=== PATIENT | male | born 1980 | race Caucasian/White ===

== ENCOUNTER 2016-09-24 04:49 | Emergency (ER) | payer OTHER, SELFPAY ==
[2016-09-24 06:11] LABS: MEAN CORPUSCULAR HEMOGLOBIN 32.7 pg (27.0-33.0); MEAN CORPUSCULAR HGB CONC 34.9 g/dl (32.0-36.5); MEAN CORPUSCULAR VOLUME 93.9 fl (80.0-96.0); WHITE BLOOD COUNT 7.6 K/mm3 (4.0-10.0)
[2016-09-24 06:30] LABS: AMPHETAMINES LEVEL URINE NEGATIVE (NEGATIVE); BENZODIAZEPINES URINE NEGATIVE (NEGATIVE); COCAINE METABOLITE URINE NEGATIVE (NEGATIVE); CONTROL LINE INT CTR LINE PRESENT; METHADONE URINE NEGATIVE (NEGATIVE); OPIATES URINE NEGATIVE (NEGATIVE); TRICYCLIC ANTIDEPRESS URINE NEGATIVE (NEGATIVE)
[2016-09-24 06:37] LABS: ALBUMIN 4.2 GM/DL (3.2-5.2); ALBUMIN/GLOBULIN RATIO 1.31 (1.00-1.93); ALKALINE PHOSPHATASE 69 U/L (45-117); ALT/SGPT 33 U/L (12-78); ANION GAP 11 MEQ/L (8-16); AST/SGOT 22 U/L (15-37); BILIRUBIN,DIRECT 0.1 MG/DL (0.0-0.2); BILIRUBIN,TOTAL 0.8 MG/DL (0.2-1.0); BLOOD UREA NITROGEN 11 MG/DL (7-18); CALCIUM LEVEL 8.9 MG/DL (8.5-10.1); CARBON DIOXIDE LEVEL 23 MEQ/L (21-32); CHLORIDE LEVEL 108 MEQ/L (98-107); CREATININE FOR GFR 1.03 MG/DL (0.70-1.30); GLOMERULAR FILTRATION RATE > 60.0 (>60); GLUCOSE, FASTING 111 MG/DL (70-105); POTASSIUM SERUM 3.8 MEQ/L (3.5-5.1); SODIUM LEVEL 142 MEQ/L (136-145); TOTAL PROTEIN 7.4 GM/DL (6.4-8.2)
--- NOTE | 2016-09-24 09:35 | EDDOCDS ---
Nurse's Notes [facility] Name: Elias Hart Age: 35 yrs Sex: Male : 1980 Arrival Date: 09/24/2016 Time: 04:49 Bed [facility] [[email or web address]] Private MD: Diagnosis: Acute stress reaction Presentation: 09/24 04:57 Presenting complaint: Pt brought in via state troopers, report was drinking tonight, sls1 has had ongoing depression for few months, states " everything came to a head today" told to shoot him, called 911, pt admits to statement, denies HI. Pt tearful cooperative. Mental Health Triage Level: Level 2: The patient displays active suicidal ideations. Adult Sepsis Screening: The patient does not have new or worsening altered mentation. Patient's respiratory rate is less than 22. Systolic blood pressure is greater than 100. Patient has a qSOFA score of 0- Negative Sepsis Screen. Suicide/Homicide risk assessment- The patient admits to and/or has been reported to be having suicidal ideations. The patient reports that he/she has not been admitted to an inpatient mental health facility in the last 30 days. The patient reports that he/she does not have a recent or current history of substance abuse. The patient reports that he/she has no prior history of suicide attempt and/or organized plan. The patient reports that he/she has not experienced a significant life altering event in the last 30 days. The patient reports that he/she has adequate social support. Status: Patient is not a job service consultant or dependent. Transition of care: patient was not received from another setting of care. 04:57 Acuity: SULAIMAN Level 3 sls1 04:57 Method Of Arrival: Police Car sls1 Triage Assessment: 04:58 General: Appears in no apparent distress, Behavior is appropriate for age, cooperative. sls1 Pain: Denies pain. Pt Declines HIV testing. The patient is triaged at the bedside. See Assessment in Nurses Notes section of ED record. Neurological: Level of Consciousness is awake, alert, Oriented to person, place, time. Respiratory: Airway is patent Respiratory effort is even, unlabored, Respiratory pattern is regular, symmetrical. Derm: No deficits noted. Historical: - Allergies: Ampicillin; - Home Meds: 1. none - PMHx: none; - PSHx: none; - Social history: Smoking status: Patient uses tobacco products, heavy tobacco smoker. Patient uses alcohol admits to "couple of beers" a day. No barriers to communication noted, The patient speaks fluent Greenlandic, Speaks appropriately for age. - Family history: Not pertinent. - : The pt / caregiver states he / she is not on anticoagulants. Home medication list is obtained from the patient. - Exposure Risk Screening:: None identified. Screenin:59 Screening information is obtained from the patient. Fall risk: No risks identified. sls1 Assistance ADL's: requires no assistance with activities of daily living. Abuse/DV Screen: The patient / caregiver reports he/she is: not in a situation that causes fear, pain or injury. Nutritional screening: No deficits noted. Advance Directives: Further advance directive information is declined. home support is adequate. Assessment: 04:59 General: Appears in no apparent distress, See triage assessment. sls1 05:07 General: Appears in no apparent distress, comfortable, Behavior is cooperative, pt slm tearful . Pain: Denies pain. Neurological: Level of Consciousness is awake, alert, obeys commands. Respiratory: Airway is patent Respiratory effort is even, unlabored. Derm: No deficits noted. 05:59 General: Appears in no apparent distress, comfortable, Behavior is appropriate for age, slm cooperative, quiet. General: pt resting quietly on stretcher security observing . Respiratory: Airway is patent Respiratory effort is even, unlabored, Respiratory pattern is regular. 06:20 General: Appears in no apparent distress, Behavior is appropriate for age, cooperative. slm General: pt talking on phon security observing . Respiratory: Airway is patent Respiratory effort is even, unlabored. 08:25 General: Appears in no apparent distress, Cristian PSA in with patient. jjr 09:32 General: Awake and alert, calm and cooperative, denies feeling suicidal, home with dwg family member.. Mental Health Eval: 04:52 Referral Information: Evaluation referral is generated by a police agency: [facility] [employer] badge #[id number]. The patient was referred for evaluation because called 911 due to PT +SI. Per the officer PT told his he wished they had a gun so that she could shoot him. 09:07 Mental health consult is initiated at 07:30. Status: The patient is not a job service consultant or dependent. [facility] Behavioral Health: The patient is not an established patient of [facility]. Referral Information: Evaluation referral is generated by a police agency: . The patient was referred for evaluation because Pt's Eusebia reports the pt made the statement "shot me if we had a gun" while was on the phone with 911 because pt had been in an argument with her, left the house drunk, gotten into the car, drove around the block, and then came into the house and made the statement. 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 Pt and Eusebia are CFS, and pt reports wanting to speak with someone to help with his issues. Referrals given, pt stated he could possibly go were one of his daughters goes, Family counseling services. Pt will look into it tomorrow. Subjective: The patients chief complaint is Pt reports he was drunk, depressed, angry, feeling overwhelmed, said something "Stupid", they have no guns in the house, and both are CFS "Would never kill self or have anyone else do it for him". Delusions are denied. Patient's mood is angry, anxious, depressed, Hallucinations are denied. Mental Health history: alcohol abuse, anxiety, depression, Mental Health Admissions: None. Current Outpatient Mental Health Services: None. Current living environment is Family / Home Support: Pt resided with his and 3 daughters The patient currently lives with his / her significant other, Eusebia. The patient is . Patient presents to Emergency Department with the following symptoms within the past 2 weeks: agitation, alcohol abuse, anger, anxiety, depressed mood. Substance abuse: Patient uses. Mental status exam: Patients appearance is appropriate, Patient's behavior is cooperative, Speech is normal. Affect is appropriate. Mood is angry. anxious. depressed. Hallucinations are denied. Appetite is normal. Memory is good. Energy level is normal. Content of thought is normal. Thought process is intact. Cognitive level is oriented to person, place, time and situation Patient's insight is poor. Judgement is poor. Rapport with interviewer is good. Suicidal Ideation is denied. Homicidal ideation is not present. Disposition: Medically cleared for disposition by Sharath Last DO Psychiatric Consult is performed by phone with Dr Rafita Amin The patient has a safe destination which is Home with his Eusebia, transportation with her, referral list given, pt stated he well try to get into Family counseling where his 17 YO daughter goes. [facility] Admission Criteria: Not Applicable. DSM-V Differential Diagnosis: Adjustment Disorder (F43.2) with depressed mood (F43.21). Vital Signs: 04:50 BP 142 / 99; Pulse 101; Resp 18; Temp 96.8; Pulse Ox 98% ; Weight 104.33 kg; Height 5 m ft. 11 in. (180.34 cm); Pain 0/10; 09:32 BP 131 / 75; Pulse 87; Resp 20; Temp 96.8(T); Pulse Ox 96% on R/A; Pain 0/10; dwg 04:50 Body Mass Index 32.08 (104.33 kg, 180.34 cm) [facility] Vitals: 04:50 Log In time N/A- police car arrival. [facility] ED Course: 04:49 Patient visited by Danielle Ribeiro Reg. hs2 04:49 Patient moved to [facility] hs2 04:50 Nuria Kaba LPN is Primary Nurse. [facility] 04:50 Patient moved to [facility] [[email or web address]] hs2 04:55 Sharath Last DO is Attending Physician. mm11 04:55 Patient visited by Sharath Last DO. mm11 04:55 [facility] Legal paperwork was scanned into navabi and attached to record. jfb 04:58 Triage Initiated sls1 04:58 Pt greeted and oriented to ED. Patient advised of names of staff involved in care, mas location of call forrest, wait times and NPO status. Accompanied by Law Enforcement, [facility] on , Patient has correct armband on for positive identification. Placed in psych safe attire. Bed in low position. Call light in reach. Side rails up X 1. Security observing. Property removed, inventory done, secured in belongings bag- Placed in locker 4. Door closed. Noise minimized. Moved to private room. Verbal reassurance given. Warm blanket given. Pillow given. Psych Safety Check: Location: Psych Room. Visual Assessment: cooperative \\T\\ this time. 04:59 The patient / caregiver is instructed regarding the plan of care and ED course. [facility] 04:59 No IV's were initiated during this patient's visit. Labs drawn. (by ED staff). Sent per [facility] order to lab. 05:01 Patient visited by Luca Hancock. mas 05:07 Urine collected. Urine specimen sent to lab. slm 05:08 Patient visited by Nuria Kaba LPN. slm 05:15 Patient visited by Luca Hancock. mas 05:30 Patient visited by Luca Hancock. mas 05:45 Patient visited by Luca Hancock. mas 05:53 Patient visited by Sharath Last DO. mm11 05:58 Acetaminophen Level Sent. slm 05:58 Basic Metabolic Profile Sent. slm 05:58 Complete Blood Count Sent. slm 05:58 Drug Eval Toxicology ED Only Sent. slm 05:58 Ethyl Alcohol (ethanol) Sent. slm 05:58 Liver Profile Sent. slm 05:58 Salicylate Level Sent. slm 05:58 Thyroid Stimulating Hormone Sent. slm 06:00 Patient visited by Nuria Kaba LPN. slm 06:03 Patient visited by Nuria Kaba LPN. slm 06:21 Patient visited by Nuria Kaba LPN. slm 06:40 Patient visited by Nuria Kaba LPN. slm 06:45 Patient visited by Nuria Kaba LPN. slm 06:56 [facility] [place] Agreement was scanned into navabi and attached to record. hs2 06:58 Patient name changed from Christopher\\S\\\\S\\Tanner\\S\\ to Christopher\\S\\Carter\\S\\Tanner. EDMS 07:00 Patient visited by Luca Hancock. mas 07:06 Patient visited by Parker Grajeda Security Aide. pjf 07:07 Patient visited by Parker Grajeda Security Aide. pjf 07:22 Patient visited by Parker Graejda Security Aide. pjf 07:30 Patient visited by Parker Grajeda Security Aide. pjf 07:44 Patient visited by Parker Grajeda Security Aide. pjf 07:45 Attending Physician role handed off by Sharath Last DO ml 07:45 Juvenal Fleming MD is Attending Physician. ml 08:06 Patient visited by Parker Grajeda Security Aide. pjf 08:17 Patient visited by aPrker Grajeda Security Aide. pjf 08:25 Patient visited by Susy Hairston RN. jjr 08:33 Patient visited by Parker Grajeda Security Aide. pjf 08:46 Patient visited by Parker Grajeda Security Aide. pjf 08:47 Attending Physician role handed off by Juvenal Fleming MD mm11 08:47 Sharath Last DO is Attending Physician. mm11 08:54 Referral list, As provided by PFS is Referral Physician. mm11 09:02 Patient visited by Parker Grajeda Security Aide. pjf 09:27 [facility] Legal paperwork was scanned into navabi and attached to record. cs 09:34 Patient visited by Isaías Dawn RN. dwg 09:34 No procedures done that require assistance. dwg Attachments: 04:55 [facility] Legal paperwork jfb 09:27 [facility] Legal paperwork cs Order Results: Lab Order: Acetaminophen Level; SPEC'M 09/24/16 04:56 Test: ACETAMINOPHEN LEVEL; Value: < 2.0; Range: 10.0-30.0; Abnormal: Below low normal; Units: UG/ML; Status: F Lab Order: Basic Metabolic Profile; SPEC'M 09/24/16 04:56 Test: GLUCOSE, FASTING; Value: 111; Range: 70-105; Abnormal: Above high normal; Units: MG/DL; Status: F Test: BLOOD UREA NITROGEN; Value: 11; Range: 7-18; Units: MG/DL; Status: F Test: CREATININE FOR GFR; Value: 1.03; Range: 0.70-1.30; Units: MG/DL; Status: F Test: GLOMERULAR FILTRATION RATE; Value: > 60.0; Range: >60; Status: F Test: SODIUM LEVEL; Value: 142; Range: 136-145; Units: MEQ/L; Status: F Test: POTASSIUM SERUM; Value: 3.8; Range: 3.5-5.1; Units: MEQ/L; Status: F Test: CHLORIDE LEVEL; Value: 108; Range: 98-107; Abnormal: Above high normal; Units: MEQ/L; Status: F Test: CARBON DIOXIDE LEVEL; Value: 23; Range: 21-32; Units: MEQ/L; Status: F Test: ANION GAP; Value: 11; Range: 8-16; Units: MEQ/L; Status: F Test: CALCIUM LEVEL; Value: 8.9; Range: 8.5-10.1; Units: MG/DL; Status: F Test Note: ; Units are mL/min/1.73 m2 Chronic Kidney Disease Staging per NKF: Stage I & II GFR >=60 Normal to Mildly Decreased Stage III GFR 30-59 Moderately Decreased Stage IV GFR 15-29 Severely Decreased Stage V GFR <15 Very Little GFR Left ESRD GFR <15 on [employer] Lab Order: Complete Blood Count; [facility] 09/24/16 04:56 Test: WHITE BLOOD COUNT; Value: 7.6; Range: 4.0-10.0; Units: K/mm3; Status: F Test: RED BLOOD COUNT; Value: 4.96; Range: 4.30-6.10; Units: M/mm3; Status: F Test: HEMOGLOBIN; Value: 16.2; Range: 14.0-18.0; Units: g/dl; Status: F Test: HEMATOCRIT; Value: 46.6; Range: 42.0-52.0; Units: %; Status: F Test: MEAN CORPUSCULAR VOLUME; Value: 93.9; Range: 80.0-96.0; Units: fl; Status: F Test: MEAN CORPUSCULAR HEMOGLOBIN; Value: 32.7; Range: 27.0-33.0; Units: pg; Status: F Test: MEAN CORPUSCULAR HGB CONC; Value: 34.9; Range: 32.0-36.5; Units: g/dl; Status: F Test: RED CELL DISTRIBUTION WIDTH; Value: 13.0; Range: 11.5-14.5; Units: %; Status: F Test: PLATELET COUNT, AUTOMATED; Value: 286; Range: 150-450; Units: k/mm3; Status: F Lab Order: Drug Eval Toxicology ED Only; SPEC'M 09/24/16 04:56 Test: AMPHETAMINES LEVEL URINE; Value: NEGATIVE; Range: NEGATIVE; Status: F Test: BARBITURATES URINE; Value: NEGATIVE; Range: NEGATIVE; Status: F Test: BENZODIAZEPINES URINE; Value: NEGATIVE; Range: NEGATIVE; Status: F Test: CANNABINOIDS URINE; Value: NEGATIVE; Range: NEGATIVE; Status: F Test: COCAINE METABOLITE URINE; Value: NEGATIVE; Range: NEGATIVE; Status: F Test: METHADONE URINE; Value: NEGATIVE; Range: NEGATIVE; Status: F Test: OPIATES URINE; Value: NEGATIVE; Range: NEGATIVE; Status: F Test: TRICYCLIC ANTIDEPRESS URINE; Value: NEGATIVE; Range: NEGATIVE; Status: F Test Note: ; ALL PRESUMPTIVE POSITIVE FINDINGS ARE UNCONFIRMED NORMAL VALUES THRESHOLD IN NG/ML AMPHETAMINES 1000 METHAMPHETAMINES 1000 BARBITURATES 300 BENZODIAZEPINES 300 CANNABINOIDS (THC) 50 COCAINE METABOLITE 300 METHADONE 300 OPIATES 300 PHENCYCLIDINE 25 TRICYCLIC ANTIDEPRESSANTS 1000 RESULTS ARE FOR MEDICAL PURPOSES ONLY. ALL URINE SPECIMENS WILL BE SAVED FOR 3 DAYS. IF CONFIRMATION OF A PRESUMPTIVE POSTIVE SCREEN RESULT IS DESIRED, CALL CHEMISTRY ([phone]) AND REQUEST URINE TO BE SENT TO REFERENCE LAB. FOR A LIST OF CLOSELY RELATED COMPOUNDS PLEASE CALL THE LAB. Lab Order: Ethyl Alcohol (ethanol); SPEC'M 09/24/16 04:56 Test: ETHYL ALCOHOL (ETHANOL); Value: 0.009; Range: 0.000-0.010; Units: %; Status: F Lab Order: Liver Profile; SPEC'M 09/24/16 04:56 Test: AST/SGOT; Value: 22; Range: 15-37; Units: U/L; Status: F Test: ALT/SGPT; Value: 33; Range: 12-78; Units: U/L; Status: F Test: ALKALINE PHOSPHATASE; Value: 69; Range: 45-117; Units: U/L; Status: F Test: BILIRUBIN,TOTAL; Value: 0.8; Range: 0.2-1.0; Units: MG/DL; Status: F Test: BILIRUBIN,DIRECT; Value: 0.1; Range: 0.0-0.2; Units: MG/DL; Status: F Test: TOTAL PROTEIN; Value: 7.4; Range: 6.4-8.2; Units: GM/DL; Status: F Test: ALBUMIN; Value: 4.2; Range: 3.2-5.2; Units: GM/DL; Status: F Test: ALBUMIN/GLOBULIN RATIO; Value: 1.31; Range: 1.00-1.93; Status: F Lab Order: Salicylate Level; SPEC'M 09/24/16 04:56 Test: SALICYLATE LEVEL; Value: 3.9; Range: 5.0-30.0; Abnormal: Below low normal; Units: MG/DL; Status: F Lab Order: Thyroid Stimulating Hormone; SPEC'M 09/24/16 04:56 Test: THYROID STIMULATING HORMONE; Value: 0.580; Range: 0.358-3.740; Units: uIU/ML; Status: F Outcome: 08:55 Discharge ordered by Provider. mm11 09:33 Discharge Assessment: Patient awake, alert and oriented x 3. No cognitive and/or dwg functional deficits noted. Patient verbalized understanding of disposition instructions. patient administered narcotics - no. The following High Risk Discharge criteria are identified: None. Discharged to home ambulatory, with family. Condition: good Condition: stable Condition: improved. No special radiology studies were completed. 09:34 Patient left the ED. dwg Signatures: Dispatcher [employer] EDND Juvenal Fleming MD MD ml Greene, Daniel, RN RN dw Cristian Rose, LINH PSA Parker Nguyen, Security Aide AlexSharath Colon, DO mm11 Susy Hairston, RN RN Susan Hastings, PSA PSA Luca Gandhi Shannon, RN RN sls1 Nuria Kaba LPN LPN slDanielle Sexton, Reg Reg hs2 MTDD
--- NOTE | 2016-09-24 09:35 | EDDOCDS ---
Physician Documentation [facility] Name: Elias Hart Age: 35 yrs Sex: Male : 1980 Arrival Date: 09/24/2016 Time: 04:49 Bed [facility] Private MD: Disposition: 09/24/16 08:55 Discharged to Home/Self Care. Impression: Acute stress reaction. - Condition is Stable. - Discharge Instructions: Helping Someone Who is Suicidal, Panic Attacks, Self-Destructive Behavior, Anger Management, Panic Attacks, [id number]. - Medication Reconciliation, Local Pharmacy Hours form. - Follow up: Referral list, As provided by PFS; When: Call to arrange an appointment; Reason: Continuance of care. - Problem is an acute exacerbation. - Symptoms have improved. Historical: - Allergies: Ampicillin; - Home Meds: 1. none - PMHx: none; - PSHx: none; - Social history: Smoking status: Patient uses tobacco products, heavy tobacco smoker. Patient uses alcohol admits to "couple of beers" a day. No barriers to communication noted, The patient speaks fluent Tongan, Speaks appropriately for age. - Family history: Not pertinent. - : The pt / caregiver states he / she is not on anticoagulants. Home medication list is obtained from the patient. - Exposure Risk Screening:: None identified. Vital Signs: 09/24 04:50 BP 142 / 99; Pulse 101; Resp 18; Temp 96.8; Pulse Ox 98% ; Weight 104.33 kg / 230.01 slm lbs; Height 5 ft. 11 in. (180.34 cm); Pain 0/10; 09:32 BP 131 / 75; Pulse 87; Resp 20; Temp 96.8(T); Pulse Ox 96% on R/A; Pain 0/10; dwg 04:50 Body Mass Index 32.08 (104.33 kg, 180.34 cm) slm MDM: 04:55 [facility] Legal paperwork was scanned into Cavium and attached to record. jfb 05:54 Consult PFS/PSA/Diversional Therapist'S Assistant ordered. mm11 05:54 Consult PFS/PSA/Diversional Therapist'S Assistant: Patient's case requires discussion with on-call mm11 Psychiatrist ordered. 05:54 PSA/PFS to call Nursing Tag Writer, to enter patient data on [place] Safe Act if patient mm11 involuntarily admitted or transferred for SI or HI ordered. 05:54 Confirm accurate psychiatric medication list and times of last dosage ordered. mm11 05:54 Detain Pt Until Medically/PFS Cleared ordered. mm11 05:54 Acetaminophen Level Ordered. EDMS 05:54 Basic Metabolic Profile Ordered. EDMS 05:54 Complete Blood Count Ordered. EDMS 05:54 Drug Eval Toxicology ED Only Ordered. EDMS 05:54 Ethyl Alcohol (ethanol) Ordered. EDMS 05:54 Liver Profile Ordered. EDMS 05:54 Salicylate Level Ordered. EDMS 05:54 Thyroid Stimulating Hormone Ordered. EDMS 06:08 REGULAR DIET PLASTIC GODINEZ+DIET ordered. EDMS 06:26 Financial registration complete. hs2 06:56 [facility] Payment Agreement was scanned into Cavium and attached to record. hs2 07:09 Acetaminophen Level Reviewed. mm11 07:09 Basic Metabolic Profile Reviewed. mm11 07:09 Salicylate Level Reviewed. mm11 07:09 Complete Blood Count Reviewed. mm11 07:09 Drug Eval Toxicology ED Only Reviewed. mm11 07:09 Ethyl Alcohol (ethanol) Reviewed. mm11 07:09 Liver Profile Reviewed. mm11 07:09 Thyroid Stimulating Hormone Reviewed. mm11 07:45 ED course: pt signed out to ri. pending psych disposition. pt with no complaints. mlg. glover 09:27 [facility] Legal paperwork was scanned into Cavium and attached to record. cs Signatures: Dispatcher [employer] [facility] Juvenal Fleming MD MD ml Greene, Daniel RN RN Cristian Ash PSA PSA Sharath Elizabeth, DO mm11 Susan Segundo, PSA PSA Shania Vale, RN RN sls1 Danielle Ribeiro, Reg Reg hs2 The chart was reviewed and I authenticate all verbal orders and agree with the evaluation and treatment provided.Attachments: 06:56 [facility] Payment Agreement hs2 MTDD
--- NOTE | 2016-09-26 10:35 | EDDOCDS ---
Physician Documentation [facility] Name: Elias Hart Age: 35 yrs Sex: Male : 1980 Arrival Date: 09/24/2016 Time: 04:49 Bed [facility] Private MD: Disposition: 09/24/16 08:55 Discharged to Home/Self Care. Impression: Acute stress reaction. - Condition is Stable. - Discharge Instructions: Helping Someone Who is Suicidal, Panic Attacks, Self-Destructive Behavior, Anger Management, Panic Attacks, [id number]. - Medication Reconciliation, Local Pharmacy Hours form. - Follow up: Referral list, As provided by PFS; When: Call to arrange an appointment; Reason: Continuance of care. - Problem is an acute exacerbation. - Symptoms have improved. Historical: - Allergies: Ampicillin; - Home Meds: 1. none - PMHx: none; - PSHx: none; - Social history: Smoking status: Patient uses tobacco products, heavy tobacco smoker. Patient uses alcohol admits to "couple of beers" a day. No barriers to communication noted, The patient speaks fluent Bermudian, Speaks appropriately for age. - Family history: Not pertinent. - : The pt / caregiver states he / she is not on anticoagulants. Home medication list is obtained from the patient. - Exposure Risk Screening:: None identified. Vital Signs: 09/24 04:50 BP 142 / 99; Pulse 101; Resp 18; Temp 96.8; Pulse Ox 98% ; Weight 104.33 kg / 230.01 slm lbs; Height 5 ft. 11 in. (180.34 cm); Pain 0/10; 09:32 BP 131 / 75; Pulse 87; Resp 20; Temp 96.8(T); Pulse Ox 96% on R/A; Pain 0/10; dwg 04:50 Body Mass Index 32.08 (104.33 kg, 180.34 cm) slm MDM: 04:55 [facility] Legal paperwork was scanned into [email or web address] and attached to record. jfb 05:54 Consult PFS/PSA/Gas Welder ordered. mm11 05:54 Consult PFS/PSA/Gas Welder: Patient's case requires discussion with on-call mm11 Psychiatrist ordered. 05:54 PSA/PFS to call Nursing Wrapper Counter, to enter patient data on [place] Safe Act if patient mm11 involuntarily admitted or transferred for SI or HI ordered. 05:54 Confirm accurate psychiatric medication list and times of last dosage ordered. mm11 05:54 Detain Pt Until Medically/PFS Cleared ordered. mm11 05:54 Acetaminophen Level Ordered. EDMS 05:54 Basic Metabolic Profile Ordered. EDMS 05:54 Complete Blood Count Ordered. EDMS 05:54 Drug Eval Toxicology ED Only Ordered. EDMS 05:54 Ethyl Alcohol (ethanol) Ordered. EDMS 05:54 Liver Profile Ordered. EDMS 05:54 Salicylate Level Ordered. EDMS 05:54 Thyroid Stimulating Hormone Ordered. EDMS 06:08 REGULAR DIET PLASTIC GODINEZ+DIET ordered. EDMS 06:26 Financial registration complete. hs2 06:56 [facility] Payment Agreement was scanned into [email or web address] and attached to record. hs2 07:09 Acetaminophen Level Reviewed. mm11 07:09 Basic Metabolic Profile Reviewed. mm11 07:09 Salicylate Level Reviewed. mm11 07:09 Complete Blood Count Reviewed. mm11 07:09 Drug Eval Toxicology ED Only Reviewed. mm11 07:09 Ethyl Alcohol (ethanol) Reviewed. mm11 07:09 Liver Profile Reviewed. mm11 07:09 Thyroid Stimulating Hormone Reviewed. mm11 07:45 ED course: pt signed out to pr. pending psych disposition. pt with no complaints. ketty. adalberto 09:27 E Legal paperwork was scanned into [email or web address] and attached to record. cs 19:18 T-Sheet-- Draft Copy was scanned into [email or web address] and attached to record. klr Signatures: Dispatcher [facility] Juvenal Fleming MD MD ml Greene, Daniel, RN RN g Cristian Rose PSA PSA Sharath Elizabeth, DO mm11 Susan Segundo, PSA PSA Shania Vale RN RN sls1 Danielle Ribeiro, Reg Reg hs2 Paloma Pavon klr The chart was reviewed and I authenticate all verbal orders and agree with the evaluation and treatment provided.Attachments: 06:56 [facility] Payment Agreement hs2 19:18 T-Sheet-- Draft Copy klr Chart Complete MTDD
--- NOTE | 2016-09-26 10:35 | EDDOCDS ---
Physician Documentation [facility] Name: Elias Hart Age: 35 yrs Sex: Male : 1980 Arrival Date: 09/24/2016 Time: 04:49 Bed [facility] Private MD: Disposition: 09/24/16 08:55 Discharged to Home/Self Care. Impression: Acute stress reaction. - Condition is Stable. - Discharge Instructions: Helping Someone Who is Suicidal, Panic Attacks, Self-Destructive Behavior, Anger Management, Panic Attacks, [id number]. - Medication Reconciliation, Local Pharmacy Hours form. - Follow up: Referral list, As provided by PFS; When: Call to arrange an appointment; Reason: Continuance of care. - Problem is an acute exacerbation. - Symptoms have improved. Historical: - Allergies: Ampicillin; - Home Meds: 1. none - PMHx: none; - PSHx: none; - Social history: Smoking status: Patient uses tobacco products, heavy tobacco smoker. Patient uses alcohol admits to "couple of beers" a day. No barriers to communication noted, The patient speaks fluent Wallisian, Speaks appropriately for age. - Family history: Not pertinent. - : The pt / caregiver states he / she is not on anticoagulants. Home medication list is obtained from the patient. - Exposure Risk Screening:: None identified. Vital Signs: 09/24 04:50 BP 142 / 99; Pulse 101; Resp 18; Temp 96.8; Pulse Ox 98% ; Weight 104.33 kg / 230.01 slm lbs; Height 5 ft. 11 in. (180.34 cm); Pain 0/10; 09:32 BP 131 / 75; Pulse 87; Resp 20; Temp 96.8(T); Pulse Ox 96% on R/A; Pain 0/10; dwg 04:50 Body Mass Index 32.08 (104.33 kg, 180.34 cm) slm MDM: 04:55 M[facility] Legal paperwork was scanned into [employer] and attached to record. jfb 05:54 Consult PFS/PSA/President & Founder ordered. mm11 05:54 Consult PFS/PSA/President & Founder: Patient's case requires discussion with on-call mm11 Psychiatrist ordered. 05:54 PSA/PFS to call Nursing Shank Maker, to enter patient data on [place] Safe Act if patient mm11 involuntarily admitted or transferred for SI or HI ordered. 05:54 Confirm accurate psychiatric medication list and times of last dosage ordered. mm11 05:54 Detain Pt Until Medically/PFS Cleared ordered. mm11 05:54 Acetaminophen Level Ordered. EDMS 05:54 Basic Metabolic Profile Ordered. EDMS 05:54 Complete Blood Count Ordered. EDMS 05:54 Drug Eval Toxicology ED Only Ordered. EDMS 05:54 Ethyl Alcohol (ethanol) Ordered. EDMS 05:54 Liver Profile Ordered. EDMS 05:54 Salicylate Level Ordered. EDMS 05:54 Thyroid Stimulating Hormone Ordered. EDMS 06:08 REGULAR DIET PLASTIC GODINEZ+DIET ordered. EDMS 06:26 Financial registration complete. hs2 06:56 [facility] Payment Agreement was scanned into [employer] and attached to record. hs2 07:09 Acetaminophen Level Reviewed. mm11 07:09 Basic Metabolic Profile Reviewed. mm11 07:09 Salicylate Level Reviewed. mm11 07:09 Complete Blood Count Reviewed. mm11 07:09 Drug Eval Toxicology ED Only Reviewed. mm11 07:09 Ethyl Alcohol (ethanol) Reviewed. mm11 07:09 Liver Profile Reviewed. mm11 07:09 Thyroid Stimulating Hormone Reviewed. mm11 07:45 ED course: pt signed out to ia. pending psych disposition. pt with no complaints. ketty. adalberto 09:27 E Legal paperwork was scanned into [employer] and attached to record. cs 19:18 T-Sheet-- Draft Copy was scanned into [employer] and attached to record. klr Signatures: Dispatcher [facility] Juvenal Fleming MD MD ml Greene, Daniel, RN RN g Cristian Rose PSA PSA Sharath Elizabeth, DO mm11 Susan Segundo, PSA PSA Shania Vale RN RN sls1 Danielle Ribeiro, Reg Reg hs2 Paloma Pavon klr The chart was reviewed and I authenticate all verbal orders and agree with the evaluation and treatment provided.Attachments: 06:56 [facility] Payment Agreement hs2 19:18 T-Sheet-- Draft Copy klr Chart Complete MTDD
--- NOTE | 2016-09-26 10:35 | EDDOCDS ---
Nurse's Notes [facility] Name: Elias Hart Age: 35 yrs Sex: Male : 1980 Arrival Date: 09/24/2016 Time: 04:49 Bed [facility] Private MD: Diagnosis: Acute stress reaction Presentation: 09/24 04:57 Presenting complaint: Pt brought in via state troopers, report was drinking tonight, sls1 has had ongoing depression for few months, states " everything came to a head today" told to shoot him, called 911, pt admits to statement, denies HI. Pt tearful cooperative. Mental Health Triage Level: Level 2: The patient displays active suicidal ideations. Adult Sepsis Screening: The patient does not have new or worsening altered mentation. Patient's respiratory rate is less than 22. Systolic blood pressure is greater than 100. Patient has a qSOFA score of 0- Negative Sepsis Screen. Suicide/Homicide risk assessment- The patient admits to and/or has been reported to be having suicidal ideations. The patient reports that he/she has not been admitted to an inpatient mental health facility in the last 30 days. The patient reports that he/she does not have a recent or current history of substance abuse. The patient reports that he/she has no prior history of suicide attempt and/or organized plan. The patient reports that he/she has not experienced a significant life altering event in the last 30 days. The patient reports that he/she has adequate social support. Status: Patient is not a cashier self service gasoline or dependent. Transition of care: patient was not received from another setting of care. 04:57 Acuity: SULAIMAN Level 3 sls1 04:57 Method Of Arrival: Police Car sls1 Triage Assessment: 04:58 General: Appears in no apparent distress, Behavior is appropriate for age, cooperative. sls1 Pain: Denies pain. Pt Declines HIV testing. The patient is triaged at the bedside. See Assessment in Nurses Notes section of ED record. Neurological: Level of Consciousness is awake, alert, Oriented to person, place, time. Respiratory: Airway is patent Respiratory effort is even, unlabored, Respiratory pattern is regular, symmetrical. Derm: No deficits noted. Historical: - Allergies: Ampicillin; - Home Meds: 1. none - PMHx: none; - PSHx: none; - Social history: Smoking status: Patient uses tobacco products, heavy tobacco smoker. Patient uses alcohol admits to "couple of beers" a day. No barriers to communication noted, The patient speaks fluent Yemeni, Speaks appropriately for age. - Family history: Not pertinent. - : The pt / caregiver states he / she is not on anticoagulants. Home medication list is obtained from the patient. - Exposure Risk Screening:: None identified. Screenin:59 Screening information is obtained from the patient. Fall risk: No risks identified. sls1 Assistance ADL's: requires no assistance with activities of daily living. Abuse/DV Screen: The patient / caregiver reports he/she is: not in a situation that causes fear, pain or injury. Nutritional screening: No deficits noted. Advance Directives: Further advance directive information is declined. home support is adequate. Assessment: 04:59 General: Appears in no apparent distress, See triage assessment. sls1 05:07 General: Appears in no apparent distress, comfortable, Behavior is cooperative, pt slm tearful . Pain: Denies pain. Neurological: Level of Consciousness is awake, alert, obeys commands. Respiratory: Airway is patent Respiratory effort is even, unlabored. Derm: No deficits noted. 05:59 General: Appears in no apparent distress, comfortable, Behavior is appropriate for age, slm cooperative, quiet. General: pt resting quietly on stretcher security observing . Respiratory: Airway is patent Respiratory effort is even, unlabored, Respiratory pattern is regular. 06:20 General: Appears in no apparent distress, Behavior is appropriate for age, cooperative. slm General: pt talking on phon security observing . Respiratory: Airway is patent Respiratory effort is even, unlabored. 08:25 General: Appears in no apparent distress, Cristian PSA in with patient. jjr 09:32 General: Awake and alert, calm and cooperative, denies feeling suicidal, home with dwg family member.. Mental Health Eval: 04:52 Referral Information: Evaluation referral is generated by a police agency: [facility] jfb Iyanbitokarthikeyan Painter badge #[id number]. The patient was referred for evaluation because called 911 due to PT +SI. Per the officer PT told his he wished they had a gun so that she could shoot him. 09:07 Mental health consult is initiated at 07:30. Status: The patient is not a cashier self service gasoline or dependent. [facility] Behavioral Health: The patient is not an established patient of [facility] Behavioral Health. Referral Information: Evaluation referral is generated by a police agency: . The patient was referred for evaluation because Pt's Eusebia reports the pt made the statement "shot me if we had a gun" while was on the phone with 911 because pt had been in an argument with her, left the house drunk, gotten into the car, drove around the block, and then came into the house and made the statement. 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 Pt and Eusebia are CFS, and pt reports wanting to speak with someone to help with his issues. Referrals given, pt stated he could possibly go were one of his daughters goes, Family counseling services. Pt will look into it tomorrow. Subjective: The patients chief complaint is Pt reports he was drunk, depressed, angry, feeling overwhelmed, said something "Stupid", they have no guns in the house, and both are CFS "Would never kill self or have anyone else do it for him". Delusions are denied. Patient's mood is angry, anxious, depressed, Hallucinations are denied. Mental Health history: alcohol abuse, anxiety, depression, Mental Health Admissions: None. Current Outpatient Mental Health Services: None. Current living environment is Family / Home Support: Pt resided with his and 3 daughters The patient currently lives with his / her significant other, Eusebia. The patient is . Patient presents to Emergency Department with the following symptoms within the past 2 weeks: agitation, alcohol abuse, anger, anxiety, depressed mood. Substance abuse: Patient uses. Mental status exam: Patients appearance is appropriate, Patient's behavior is cooperative, Speech is normal. Affect is appropriate. Mood is angry. anxious. depressed. Hallucinations are denied. Appetite is normal. Memory is good. Energy level is normal. Content of thought is normal. Thought process is intact. Cognitive level is oriented to person, place, time and situation Patient's insight is poor. Judgement is poor. Rapport with interviewer is good. Suicidal Ideation is denied. Homicidal ideation is not present. Disposition: Medically cleared for disposition by Sharath Last DO Psychiatric Consult is performed by phone with Dr Rafita Amin The patient has a safe destination which is Home with his Eusebia, transportation with her, referral list given, pt stated he well try to get into Family counseling where his 17 YO daughter goes. [facility] Admission Criteria: Not Applicable. DSM-V Differential Diagnosis: Adjustment Disorder (F43.2) with depressed mood (F43.21). Vital Signs: 04:50 BP 142 / 99; Pulse 101; Resp 18; Temp 96.8; Pulse Ox 98% ; Weight 104.33 kg; Height 5 m ft. 11 in. (180.34 cm); Pain 0/10; 09:32 BP 131 / 75; Pulse 87; Resp 20; Temp 96.8(T); Pulse Ox 96% on R/A; Pain 0/10; dwg 04:50 Body Mass Index 32.08 (104.33 kg, 180.34 cm) [facility] Vitals: 04:50 Log In time N/A- police car arrival. [facility] ED Course: 04:49 Patient visited by Danielle Ribeiro Reg. hs2 04:49 Patient moved to [facility] hs2 04:50 Nuria Kaba LPN is Primary Nurse. [facility] 04:50 Patient moved to [facility] hs2 04:55 Sharath Last DO is Attending Physician. mm11 04:55 Patient visited by Sharath Last DO. mm11 04:55 [facility] Legal paperwork was scanned into [employer] and attached to record. jfb 04:58 Triage Initiated sls1 04:58 Pt greeted and oriented to ED. Patient advised of names of staff involved in care, mas location of call forrest, wait times and NPO status. Accompanied by Law Enforcement, [facility] on , Patient has correct armband on for positive identification. Placed in psych safe attire. Bed in low position. Call light in reach. Side rails up X 1. Security observing. Property removed, inventory done, secured in belongings bag- Placed in locker 4. Door closed. Noise minimized. Moved to private room. Verbal reassurance given. Warm blanket given. Pillow given. Psych Safety Check: Location: Psych Room. Visual Assessment: cooperative \\T\\ this time. 04:59 The patient / caregiver is instructed regarding the plan of care and ED course. [facility] 04:59 No IV's were initiated during this patient's visit. Labs drawn. (by ED staff). Sent per [facility] order to lab. 05:01 Patient visited by Luca Hancock. mas 05:07 Urine collected. Urine specimen sent to lab. slm 05:08 Patient visited by Nuria Kaba LPN. slm 05:15 Patient visited by Luca Hancock. mas 05:30 Patient visited by Luca Hancock. mas 05:45 Patient visited by Luca Hancock. mas 05:53 Patient visited by Sharath Last DO. mm11 05:58 Acetaminophen Level Sent. slm 05:58 Basic Metabolic Profile Sent. slm 05:58 Complete Blood Count Sent. slm 05:58 Drug Eval Toxicology ED Only Sent. slm 05:58 Ethyl Alcohol (ethanol) Sent. slm 05:58 Liver Profile Sent. slm 05:58 Salicylate Level Sent. slm 05:58 Thyroid Stimulating Hormone Sent. slm 06:00 Patient visited by Nuria Kaba LPN. slm 06:03 Patient visited by Nuria Kaba LPN. slm 06:21 Patient visited by Nuria Kaba LPN. slm 06:40 Patient visited by Nuria Kaba LPN. slm 06:45 Patient visited by Nuria Kaba LPN. slm 06:56 [place] [place] was scanned into [employer] and attached to record. hs2 06:58 Patient name changed from Christopher\\S\\\\S\\Tanner\\S\\ to Christopher\\S\\Carter\\S\\Tanner. EDMS 07:00 Patient visited by Luca Hancock. mas 07:06 Patient visited by Parker Grajeda Security Aide. pjf 07:07 Patient visited by Parker Grajeda Security Aidrefugio. pjf 07:22 Patient visited by Parker Grajeda Security Aide. pjf 07:30 Patient visited by Parker Grajeda Security Aide. pjf 07:44 Patient visited by Parker Grajeda Security Aidrefugio. pjf 07:45 Attending Physician role handed off by Sharath Last DO ml 07:45 Juvenal Fleming MD is Attending Physician. ml 08:06 Patient visited by Parker Grajeda Security Aide. pjf 08:17 Patient visited by Parker Grajeda Security Aide. pjf 08:25 Patient visited by Susy Hairston RN. jjr 08:33 Patient visited by Parker Grajeda Security Aide. pjf 08:46 Patient visited by Parker Grajeda Security Aide. pjf 08:47 Attending Physician role handed off by Juvenal Fleming MD mm11 08:47 Sharath Last DO is Attending Physician. mm11 08:54 Referral list, As provided by [facility] is Referral Physician. mm11 09:02 Patient visited by Parker Grajeda Security Aide. pjf 09:27 [facility] Legal paperwork was scanned into [employer] and attached to record. cs 09:34 Patient visited by Isaías Dawn RN. dwg 09:34 No procedures done that require assistance. dwg 19:18 T-Sheet-- Draft Copy was scanned into [employer] and attached to record. klr Attachments: 04:55 E Legal paperwork jfb 09:27 [facility] Legal paperwork cs Order Results: Lab Order: Acetaminophen Level; SPEC'M 09/24/16 04:56 Test: ACETAMINOPHEN LEVEL; Value: < 2.0; Range: 10.0-30.0; Abnormal: Below low normal; Units: UG/ML; Status: F Lab Order: Basic Metabolic Profile; SPEC'M 09/24/16 04:56 Test: GLUCOSE, FASTING; Value: 111; Range: 70-105; Abnormal: Above high normal; Units: MG/DL; Status: F Test: BLOOD UREA NITROGEN; Value: 11; Range: 7-18; Units: MG/DL; Status: F Test: CREATININE FOR GFR; Value: 1.03; Range: 0.70-1.30; Units: MG/DL; Status: F Test: GLOMERULAR FILTRATION RATE; Value: > 60.0; Range: >60; Status: F Test: SODIUM LEVEL; Value: 142; Range: 136-145; Units: MEQ/L; Status: F Test: POTASSIUM SERUM; Value: 3.8; Range: 3.5-5.1; Units: MEQ/L; Status: F Test: CHLORIDE LEVEL; Value: 108; Range: 98-107; Abnormal: Above high normal; Units: MEQ/L; Status: F Test: CARBON DIOXIDE LEVEL; Value: 23; Range: 21-32; Units: MEQ/L; Status: F Test: ANION GAP; Value: 11; Range: 8-16; Units: MEQ/L; Status: F Test: CALCIUM LEVEL; Value: 8.9; Range: 8.5-10.1; Units: MG/DL; Status: F Test Note: ; Units are mL/min/1.73 m2 Chronic Kidney Disease Staging per NKF: Stage I & II GFR >=60 Normal to Mildly Decreased Stage III GFR 30-59 Moderately Decreased Stage IV GFR 15-29 Severely Decreased Stage V GFR <15 Very Little GFR Left ESRD GFR <15 on STRUCTURES ENGINEER Lab Order: Complete Blood Count; [facility] 09/24/16 04:56 Test: WHITE BLOOD COUNT; Value: 7.6; Range: 4.0-10.0; Units: K/mm3; Status: F Test: RED BLOOD COUNT; Value: 4.96; Range: 4.30-6.10; Units: M/mm3; Status: F Test: HEMOGLOBIN; Value: 16.2; Range: 14.0-18.0; Units: g/dl; Status: F Test: HEMATOCRIT; Value: 46.6; Range: 42.0-52.0; Units: %; Status: F Test: MEAN CORPUSCULAR VOLUME; Value: 93.9; Range: 80.0-96.0; Units: fl; Status: F Test: MEAN CORPUSCULAR HEMOGLOBIN; Value: 32.7; Range: 27.0-33.0; Units: pg; Status: F Test: MEAN CORPUSCULAR HGB CONC; Value: 34.9; Range: 32.0-36.5; Units: g/dl; Status: F Test: RED CELL DISTRIBUTION WIDTH; Value: 13.0; Range: 11.5-14.5; Units: %; Status: F Test: PLATELET COUNT, AUTOMATED; Value: 286; Range: 150-450; Units: k/mm3; Status: F Lab Order: Drug Eval Toxicology ED Only; SPEC'M 09/24/16 04:56 Test: AMPHETAMINES LEVEL URINE; Value: NEGATIVE; Range: NEGATIVE; Status: F Test: BARBITURATES URINE; Value: NEGATIVE; Range: NEGATIVE; Status: F Test: BENZODIAZEPINES URINE; Value: NEGATIVE; Range: NEGATIVE; Status: F Test: CANNABINOIDS URINE; Value: NEGATIVE; Range: NEGATIVE; Status: F Test: COCAINE METABOLITE URINE; Value: NEGATIVE; Range: NEGATIVE; Status: F Test: METHADONE URINE; Value: NEGATIVE; Range: NEGATIVE; Status: F Test: OPIATES URINE; Value: NEGATIVE; Range: NEGATIVE; Status: F Test: TRICYCLIC ANTIDEPRESS URINE; Value: NEGATIVE; Range: NEGATIVE; Status: F Test Note: ; ALL PRESUMPTIVE POSITIVE FINDINGS ARE UNCONFIRMED NORMAL VALUES THRESHOLD IN NG/ML AMPHETAMINES 1000 METHAMPHETAMINES 1000 BARBITURATES 300 BENZODIAZEPINES 300 CANNABINOIDS (THC) 50 COCAINE METABOLITE 300 METHADONE 300 OPIATES 300 PHENCYCLIDINE 25 TRICYCLIC ANTIDEPRESSANTS 1000 RESULTS ARE FOR MEDICAL PURPOSES ONLY. ALL URINE SPECIMENS WILL BE SAVED FOR 3 DAYS. IF CONFIRMATION OF A PRESUMPTIVE POSTIVE SCREEN RESULT IS DESIRED, CALL CHEMISTRY ([phone]) AND REQUEST URINE TO BE SENT TO REFERENCE LAB. FOR A LIST OF CLOSELY RELATED COMPOUNDS PLEASE CALL THE LAB. Lab Order: Ethyl Alcohol (ethanol); SPEC'M 09/24/16 04:56 Test: ETHYL ALCOHOL (ETHANOL); Value: 0.009; Range: 0.000-0.010; Units: %; Status: F Lab Order: Liver Profile; SPEC'M 09/24/16 04:56 Test: AST/SGOT; Value: 22; Range: 15-37; Units: U/L; Status: F Test: ALT/SGPT; Value: 33; Range: 12-78; Units: U/L; Status: F Test: ALKALINE PHOSPHATASE; Value: 69; Range: 45-117; Units: U/L; Status: F Test: BILIRUBIN,TOTAL; Value: 0.8; Range: 0.2-1.0; Units: MG/DL; Status: F Test: BILIRUBIN,DIRECT; Value: 0.1; Range: 0.0-0.2; Units: MG/DL; Status: F Test: TOTAL PROTEIN; Value: 7.4; Range: 6.4-8.2; Units: GM/DL; Status: F Test: ALBUMIN; Value: 4.2; Range: 3.2-5.2; Units: GM/DL; Status: F Test: ALBUMIN/GLOBULIN RATIO; Value: 1.31; Range: 1.00-1.93; Status: F Lab Order: Salicylate Level; SPEC'M 09/24/16 04:56 Test: SALICYLATE LEVEL; Value: 3.9; Range: 5.0-30.0; Abnormal: Below low normal; Units: MG/DL; Status: F Lab Order: Thyroid Stimulating Hormone; SPEC'M 09/24/16 04:56 Test: THYROID STIMULATING HORMONE; Value: 0.580; Range: 0.358-3.740; Units: uIU/ML; Status: F Outcome: 08:55 Discharge ordered by Provider. mm11 09:33 Discharge Assessment: Patient awake, alert and oriented x 3. No cognitive and/or dwg functional deficits noted. Patient verbalized understanding of disposition instructions. patient administered narcotics - no. The following High Risk Discharge criteria are identified: None. Discharged to home ambulatory, with family. Condition: good Condition: stable Condition: improved. No special radiology studies were completed. 09:34 Patient left the ED. dwg Signatures: Dispatcher [employer] EDMS Juvenal Fleming MD MD ml Greene, Daniel, RN RN dwg Cristian Rose PSA PSA rubén Grajeda, Parker, Security Aide Sharath Andersen, DO mm11 Susy Hairston, RN RN Susan Hastings, LINH PSA Luca Gandhi Shannon RN RN sls1 Nuria Kaba LPN PHOTOGRAPHER HELPER slm Danielle Ribeiro, Reg Reg hs2 Paloma Pavon klr Chart Complete MTDD
== END 2016-09-24 09:34 | disposition home or self-care (01) ==
LOC: M ED 04:49
DX: F43.0 Acute stress reaction (principal); F17.200 Nicotine dependence, unspecified, uncomplicated; Z88.1 Allergy status to other antibiotic agents
CPT/HCPCS: 36415; 80048; 80076; 80306; 84443; 85027; 99284; G0480

== ENCOUNTER → 2018-05-16 | Outpatient (CLI) | payer MEDICAID | LOC: M OUTALCOH 08:13 | DX: Z13.89 Encounter for screening for other disorder (principal); F10.10 Alcohol abuse, uncomplicated ==

== ENCOUNTER → 2018-08-19 | Outpatient (CLI) | payer MEDICAID | LOC: M OUTALCOH 07:47 | PROVIDERS: ATTEND Psychiatry & Neurology Psychiatry | DX: F10.10 Alcohol abuse, uncomplicated (principal) ==

== ENCOUNTER 2018-09-05 10:00 | Outpatient (RCR) | payer MEDICAID | END 2018-09-12 | LOC: M OUTALCOH 10:00 | PROVIDERS: ATTEND Psychiatry & Neurology Psychiatry | DX: F10.10 Alcohol abuse, uncomplicated (principal); F17.200 Nicotine dependence, unspecified, uncomplicated ==

== ENCOUNTER → 2018-10-10 | Outpatient (RCR) | payer MEDICAID | LOC: M OUTALCOH 09-25 09:54 | PROVIDERS: ATTEND Psychiatry & Neurology Psychiatry | DX: F10.10 Alcohol abuse, uncomplicated (principal); F17.200 Nicotine dependence, unspecified, uncomplicated ==

== ENCOUNTER 2018-11-08 14:00 | Outpatient (RCR) | payer MEDICAID | END 2018-11-10 | LOC: M OUTALCOH 14:00 | PROVIDERS: ATTEND Psychiatry & Neurology Psychiatry | DX: F10.10 Alcohol abuse, uncomplicated (principal); F17.200 Nicotine dependence, unspecified, uncomplicated ==

== ENCOUNTER 2018-12-05 15:52 | Outpatient (RCR) | payer MEDICAID | END 2018-12-10 | LOC: M OUTALCOH 15:52 | PROVIDERS: ATTEND Psychiatry & Neurology Psychiatry | DX: F10.10 Alcohol abuse, uncomplicated (principal); F17.200 Nicotine dependence, unspecified, uncomplicated ==

== ENCOUNTER 2018-12-25 13:50 | Outpatient (RCR) | payer MEDICAID | END 2019-01-10 | LOC: M OUTALCOH 13:50 | PROVIDERS: ATTEND Psychiatry & Neurology Psychiatry | DX: F10.10 Alcohol abuse, uncomplicated (principal); F17.200 Nicotine dependence, unspecified, uncomplicated ==

== ENCOUNTER → 2022-07-12 | Outpatient (REF) | payer MEDICAID ==
[2022-07-12 20:33] LABS: ALBUMIN 4.2 G/DL (3.2-5.2); ALKALINE PHOSPHATASE 75 U/L (46-116); ALT/SGPT 29 U/L (7.0-40); AST/SGOT 25 U/L (<34); BILIRUBIN,TOTAL 0.4 MG/DL (0.3-1.2); BLOOD UREA NITROGEN 12 MG/DL (9-23); CALCIUM LEVEL 9.7 MG/DL (8.5-10.1); CARBON DIOXIDE LEVEL 26 MMOL/L (20-31); CHLORIDE LEVEL 105 MMOL/L (98-107); CHOLESTEROL LEVEL 169 MG/DL (<200); CHOLESTEROL RISK RATIO 6.47 (<5); CREATININE FOR GFR 0.86 MG/DL (0.70-1.30); GLOMERULAR FILTRATION RATE > 60.0 (>60); GLUCOSE, FASTING 90 MG/DL (60-100); HDL CHOLESTEROL 26.1 MG/DL (>40); NON-HDL-C 143 MG/DL; POTASSIUM SERUM 4.4 MMOL/L (3.5-5.1); SODIUM LEVEL 140 MMOL/L (136-145); TOTAL PROTEIN 6.8 G/DL (5.7-8.2); TRIGLYCERIDES LEVEL 987 MG/DL (<150)
== END ==
LOC: M LAB REF 17:40
PROVIDERS: ATTEND Pediatrics
DX: E78.1 Pure hyperglyceridemia (principal)

== ENCOUNTER → 2022-11-28 | Outpatient (REF) | payer MEDICAID ==
[2022-11-28 17:52] LABS: ALBUMIN 4.4 G/DL (3.2-5.2); ALKALINE PHOSPHATASE 75 U/L (46-116); ALT/SGPT 27 U/L (7.0-40); AST/SGOT 22 U/L (<34); BILIRUBIN,TOTAL 0.6 MG/DL (0.3-1.2); BLOOD UREA NITROGEN 11 MG/DL (9-23); CALCIUM LEVEL 9.7 MG/DL (8.5-10.1); CARBON DIOXIDE LEVEL 28 MMOL/L (20-31); CHLORIDE LEVEL 105 MMOL/L (98-107); CHOLESTEROL LEVEL 148 MG/DL (<200); CHOLESTEROL RISK RATIO 4.28 (<5); CREATININE FOR GFR 0.99 MG/DL (0.70-1.30); GLOMERULAR FILTRATION RATE > 60.0 (>60); GLUCOSE, FASTING 78 MG/DL (60-100); HDL CHOLESTEROL 34.5 MG/DL (>40); NON-HDL-C 113.5 MG/DL; POTASSIUM SERUM 4.5 MMOL/L (3.5-5.1); SODIUM LEVEL 140 MMOL/L (136-145); TOTAL PROTEIN 7.4 G/DL (5.7-8.2); TRIGLYCERIDES LEVEL 491 MG/DL (<150)
[2022-11-28 17:54] LABS: THYROID STIMULATING HORMONE 1.324 uIU/ML (0.55-4.78)
== END ==
LOC: M LAB REF 16:27
PROVIDERS: ATTEND Pediatrics
DX: E78.1 Pure hyperglyceridemia (principal)

== ENCOUNTER → 2023-01-11 | Outpatient (CLI) | payer OTHER | LOC: M RAD 13:43 | PROVIDERS: ATTEND Family Medicine Addiction Medicine | DX: M25.561 Pain in right knee (principal) ==

== ENCOUNTER → 2023-03-13 | Outpatient (REF) | payer OTHER | LOC: M LAB REF 16:23 | PROVIDERS: ATTEND Pediatrics | DX: R37 Sexual dysfunction, unspecified (principal) ==

== ENCOUNTER → 2023-08-14 | Outpatient (REF) | payer OTHER ==
[2023-08-14 14:01] LABS: BASO # 0.1 10^3/uL (0.0-0.2); BASO % 0.8 % (0.0-1.0); EOS # 0.4 10^3/uL (0.0-0.5); EOS % 4.7 % (0.0-3.0); HEMATOCRIT 49.1 % (42.0-52.0); HEMOGLOBIN 16.8 g/dl (13.5-17.5); LYMPH # 3.1 10^3/uL (1.5-5.0); LYMPH % 33.1 % (24.0-44.0); MEAN CORPUSCULAR HEMOGLOBIN 32.6 pg (27.0-33.0); MEAN CORPUSCULAR HGB CONC 34.2 g/dl (32.0-36.5); MEAN CORPUSCULAR VOLUME 95.2 fl (80.0-96.0); MONO # 0.7 10^3/uL (0.0-0.8); MONO % 7.4 % (2.0-8.0); NEUTROPHILS % 53.8 % (36.0-66.0); PLATELET COUNT, AUTOMATED 250 10^3/uL (150-450); RED BLOOD COUNT 5.16 10^6/uL (4.30-6.10); WHITE BLOOD COUNT 9.3 10^3/uL (4.0-10.0)
[2023-08-14 14:30] LABS: ALBUMIN 4.1 G/DL (3.2-5.2); ALKALINE PHOSPHATASE 67 U/L (46-116); ALT/SGPT 20 U/L (7.0-40); AST/SGOT 15 U/L (<34); BILIRUBIN,TOTAL 0.7 MG/DL (0.3-1.2); BLOOD UREA NITROGEN 15 MG/DL (9-23); CALCIUM LEVEL 9.7 MG/DL (8.5-10.1); CARBON DIOXIDE LEVEL 27 MMOL/L (20-31); CHLORIDE LEVEL 106 MMOL/L (98-107); CHOLESTEROL LEVEL 172 MG/DL (<200); CHOLESTEROL RISK RATIO 5.02 (<5); CREATININE FOR GFR 0.91 MG/DL (0.70-1.30); GLOMERULAR FILTRATION RATE > 60.0 (>60); GLUCOSE, FASTING 108 MG/DL (60-100); HDL CHOLESTEROL 34.2 MG/DL (>40); NON-HDL-C 137.8 MG/DL; POTASSIUM SERUM 4.2 MMOL/L (3.5-5.1); SODIUM LEVEL 139 MMOL/L (136-145); THYROID STIMULATING HORMONE 2.864 uIU/ML (0.55-4.78); TOTAL 25(OH) VITAMIN D 37.8 NG/ML (20.0-100.0); TOTAL PROTEIN 6.8 G/DL (5.7-8.2); TRIGLYCERIDES LEVEL 490 MG/DL (<150)
== END ==
LOC: M LAB REF 13:21
PROVIDERS: ATTEND Pediatrics
DX: E78.1 Pure hyperglyceridemia (principal); E55.9 Vitamin D deficiency, unspecified; R53.83 Other fatigue

== ENCOUNTER → 2024-04-21 | Outpatient (REF) | payer OTHER ==
[2024-04-21 14:08] LABS: BASO % 0.5 % (0.0-1.0); EOS # 0.2 10^3/uL (0.0-0.5); EOS % 2.2 % (0.0-3.0); HEMATOCRIT 52.3 % (42.0-52.0); HEMOGLOBIN 17.3 g/dl (13.5-17.5); LYMPH # 2.2 10^3/uL (1.5-5.0); LYMPH % 29.2 % (24.0-44.0); MEAN CORPUSCULAR HEMOGLOBIN 31.9 pg (27.0-33.0); MEAN CORPUSCULAR HGB CONC 33.1 g/dl (32.0-36.5); MEAN CORPUSCULAR VOLUME 96.5 fl (80.0-96.0); MONO # 0.5 10^3/uL (0.0-0.8); MONO % 6.7 % (2.0-8.0); NEUTROPHILS # 4.5 10^3/uL (1.5-8.5); NEUTROPHILS % 61.1 % (36.0-66.0); PLATELET COUNT, AUTOMATED 310 10^3/uL (150-450); RED BLOOD COUNT 5.42 10^6/uL (4.30-6.10); WHITE BLOOD COUNT 7.4 10^3/uL (4.0-10.0)
[2024-04-21 14:41] LABS: ALBUMIN 4.2 G/DL (3.2-5.2); ALKALINE PHOSPHATASE 72 U/L (46-116); ALT/SGPT 24 U/L (7.0-40); AST/SGOT 15 U/L (<34); BILIRUBIN,TOTAL 0.7 MG/DL (0.3-1.2); BLOOD UREA NITROGEN 13 MG/DL (9-23); CALCIUM LEVEL 9.7 MG/DL (8.5-10.1); CARBON DIOXIDE LEVEL 28 MMOL/L (20-31); CHLORIDE LEVEL 110 MMOL/L (98-107); CHOLESTEROL LEVEL 117 MG/DL (<200); CHOLESTEROL RISK RATIO 3.35 (<5); CREATININE FOR GFR 0.91 MG/DL (0.70-1.30); GLOMERULAR FILTRATION RATE > 60.0 (>60); GLUCOSE, FASTING 88 MG/DL (60-100); HDL CHOLESTEROL 34.9 MG/DL (>40); LDL CHOLESTEROL 49.5 MG/DL (<100); NON-HDL-C 82.1 MG/DL; POTASSIUM SERUM 4.9 MMOL/L (3.5-5.1); SODIUM LEVEL 139 MMOL/L (136-145); TOTAL PROTEIN 6.9 G/DL (5.7-8.2); TRIGLYCERIDES LEVEL 163 MG/DL (<150)
[2024-04-21 14:44] LABS: THYROID STIMULATING HORMONE 0.697 uIU/ML (0.55-4.78)
== END ==
LOC: M LAB REF 12:40
PROVIDERS: ATTEND Pediatrics
DX: J44.9 Chronic obstructive pulmonary disease, unspecified (principal); E78.1 Pure hyperglyceridemia

== ENCOUNTER → 2025-04-24 | Outpatient (REF) | payer OTHER ==
[2025-04-24 14:34] LABS: ALT/SGPT 35 U/L (7.0-40); AST/SGOT 36 U/L (<34); BASO # 0.1 10^3/uL (0.0-0.2); BASO % 0.9 % (0.0-1.0); CALCIUM LEVEL 9.8 MG/DL (8.5-10.1); CARBON DIOXIDE LEVEL 26 MMOL/L (20-31); CHLORIDE LEVEL 106 MMOL/L (98-107); CHOLESTEROL LEVEL 162 MG/DL (<200); CHOLESTEROL RISK RATIO 4.69 (<5); CREATININE FOR GFR 0.93 MG/DL (0.70-1.30); EOS # 0.3 10^3/uL (0.0-0.5); EOS % 5.6 % (0.0-3.0); GLOMERULAR FILTRATION RATE > 90.0 (>60); LDL CHOLESTEROL 69.7 MG/DL (<100); LYMPH # 2.1 10^3/uL (1.5-5.0); LYMPH % 38.3 % (24.0-44.0); MONO # 0.4 10^3/uL (0.0-0.8); MONO % 7.7 % (2.0-8.0); NEUTROPHILS # 2.6 10^3/uL (1.5-8.5); NEUTROPHILS % 47.3 % (36.0-66.0); NON-HDL-C 127.5 MG/DL; PLATELET COUNT, AUTOMATED 249 10^3/uL (150-450); POTASSIUM SERUM 4.7 MMOL/L (3.5-5.1); SODIUM LEVEL 142 MMOL/L (136-145); TOTAL 25(OH) VITAMIN D 49.6 NG/ML (20.0-100.0); TRIGLYCERIDES LEVEL 289 MG/DL (<150)
[2025-04-24 14:40] LABS: ESTIMATED AVERAGE GLUCOSE 120.0 MG/DL (60-110)
== END ==
LOC: M LAB REF 13:57
PROVIDERS: ATTEND Pediatrics
DX: E78.1 Pure hyperglyceridemia (principal); J44.9 Chronic obstructive pulmonary disease, unspecified; E55.9 Vitamin D deficiency, unspecified; E66.9 Obesity, unspecified